=== PATIENT | male | born 1955 | race Caucasian/White ===

== ENCOUNTER 2025-05-03 07:47 | Inpatient (IN) | payer MEDICARE, MEDICAID ==
[~2025-05-03] VITALS: Ht 165.1 cm; Wt 100.7 kg
[~2025-05-03 07:47] MED LIST: HYDR-4001 MT
[2025-05-03 07:49] VITALS: O2SAT 99
[2025-05-03] MEDS: HYDROCODONE/ACETAMINOPHEN 5/325MG TABLET PO ONE (08:40)
[2025-05-03 08:43] LABS: HEMATOCRIT. 32.1 % (42.0-52.0); HEMOGLOBIN. 10.6 g/dL (14.0-18.0); MEAN PLATELET VOLUME 7.5 fl (7.4-10.4); PLATELET 343 x1000/uL (130-400); RED BLOOD CELL COUNT 3.20 mill/uL (4.7-6.1); RED CELL DISTRIBUTION WIDTH 14.6 % (11.6-14.6)
[2025-05-03] MEDS: FUROSEMIDE 40MG/4ML VIAL IVP ONE (08:44)
[2025-05-03 08:51] LABS: INR 0.9
[2025-05-03 08:56] LABS: CREATININE 0.7 mg/dL (0.6-1.3)
[2025-05-03 08:57] LABS: UREA NITROGEN BLOOD 17 mg/dL (9-23)
[2025-05-03 08:58] LABS: ASPARTATE AMINOTRANSFERASE 34 IU/L (<34); TROPONIN I HIGH SENSITIVITY 4 ng/L (3.0-53)
[2025-05-03 08:59] LABS: BILIRUBIN DIRECT 0.1 mg/dL (<=3.0); BILIRUBIN TOTAL 0.4 mg/dL (0.1-1.0); PROTEIN TOTAL 5.7 g/dL (6.0-8.3)
[2025-05-03 10:21] LABS: BAND% 5.0 % (1.0-6.0); EOSINOPHILS % MANUAL 4.0 % (0.0-5.0); LYMPHOCYTES % MANUAL 19.0 % (20.0-50.0); MONOCYTES % MANUAL 9.0 % (2.0-8.0); NEUTROPHILS % MANUAL 63.0 % (45.0-75.0); PLATELET ESTIMATE NORMAL
[2025-05-03 16:00] VITALS: BP 104/66; RESP 18; TEMP 36.7; O2SAT 98
[2025-05-03 16:40] VITALS: BP 102/74; PULSE 76; RESP 18; TEMP 36.0844
[2025-05-03] MEDS ORDERED: ONDANSETRON HCL 4MG/2ML INJ IV PRN (18:15)
[2025-05-03] MEDS ORDERED: IPRATROPIUM/ALBUTEROL 0.5-3(2.5)MG/3ML NEB HHN PRN (18:15)
[2025-05-03] MEDS ORDERED: CLONIDINE 0.1MG TABLET PO PRN (18:15)
[2025-05-03] MEDS ORDERED: INFLUENZA VACCINE 05/PF 0.5 ML SYRINGE IM ONE (18:15)
[2025-05-03] MEDS ORDERED: PNEUMOCOCCAL 20-VAL CONJ-DIP CRM 0.5ML IM ONE (18:15)
[2025-05-03 20:00] VITALS: BP 95/50; RESP 20; TEMP 36.5; O2SAT 97
[2025-05-03] MEDS: ACETAMINOPHEN 325MG TABLET PO PRN (22:38)
[2025-05-04] VITALS (7 sets, daily range): BP systolic 70–103; BP diastolic 42–61; RESP 18–20; TEMP 36.2–37.1; O2SAT 95–100
[2025-05-04 07:31] LABS: CREATININE 0.7 mg/dL (0.6-1.3); UREA NITROGEN BLOOD 13 mg/dL (9-23)
[2025-05-04 07:33] LABS: BASOPHILS % 0.3 % (0.0-2.0); EOSINOPHILS % 0.8 % (0.0-5.0); HEMATOCRIT. 33.5 % (42.0-52.0); HEMOGLOBIN. 11.4 g/dL (14.0-18.0); LYMPHOCYTES % 19.0 % (20.0-50.0); MEAN PLATELET VOLUME 7.7 fl (7.4-10.4); MONOCYTES % 11.8 % (2.0-8.0); NEUTROPHILS % 68.1 % (40.0-76.0); PLATELET 329 x1000/uL (130-400); RED BLOOD CELL COUNT 3.36 mill/uL (4.7-6.1); RED CELL DISTRIBUTION WIDTH 14.3 % (11.6-14.6)
[2025-05-04 08:33] LABS: HEPATITIS C AB NON REACTIVE (Neg) (Negative)
[2025-05-04 13:13] LABS: VITAMIN B12 SERUM 768 pg/mL (211-911)
[2025-05-04 13:14] LABS: FOLIC ACID (FOLATE) SERUM > 20.00 ng/mL (>5.38)
[2025-05-04] MEDS: ENOXAPARIN 30MG/0.3ML SYR SUBCUT SCH (13:26)
[2025-05-04 13:46] LABS: HEPATITIS A AB IGM NEGATIVE (Negative)
[2025-05-04 13:47] LABS: HEPATITIS B CORE AB IGM NEGATIVE (Negative); HEPATITIS C AB NON REACTIVE (Neg) (Negative)
[2025-05-04 21:34] LABS: CLARITY URINE CLEAR (CLEAR); COLOR URINE YELLOW (YELLOW); GLUCOSE URINE NEGATIVE (NEGATIVE); KETONES URINE NEGATIVE (NEGATIVE); LEUKOCYTE ESTERASE URINE NEGATIVE (NEGATIVE); NITRITE URINE NEGATIVE (NEGATIVE); OCCULT BLOOD URINE NEGATIVE (NEGATIVE); PH URINE 7.0 (4.5-8.0); PROTEIN URINE NEGATIVE (NEGATIVE); SPECIFIC GRAVITY URINE 1.023 (1.005-1.030); UROBILINOGEN URINE 1.0 E.U./dL (0.2-1.0)
[2025-05-05] VITALS: BP 100/62; RESP 18; TEMP 36.7; O2SAT 96
[2025-05-05 04:00] VITALS: BP 126/56; RESP 19; TEMP 36.7; O2SAT 98
[2025-05-05 08:00] VITALS: BP 139/103; PULSE 111; RESP 16; TEMP 36.3; O2SAT 96
[2025-05-05] MEDS ORDERED: NALOXONE HCL 0.4MG/ML VIAL IV PRN (13:00)
[2025-05-05] MEDS ORDERED: IOHEXOL-300 100 ML BOTTLE ONE (14:11)
[2025-05-05] MEDS: HYDROCODONE/ACETAMINOPHEN 5/325MG TABLET PO PRN (15:16)
[2025-05-05 16:00] VITALS: BP 88/50; PULSE 101; RESP 16; TEMP 36.3; O2SAT 97
[2025-05-05 20:00] VITALS: BP 96/56; PULSE 97; RESP 21; TEMP 36.5; O2SAT 98
[2025-05-06] VITALS: BP 92/58; PULSE 91; RESP 19; TEMP 36.3; O2SAT 99
[2025-05-06 04:00] VITALS: BP 102/62; PULSE 96; RESP 18; TEMP 36.1; O2SAT 97
[2025-05-06 08:00] VITALS: BP 94/58; PULSE 99; RESP 18; TEMP 35.8; O2SAT 97
[2025-05-06 12:00] VITALS: BP 96/60; PULSE 90; RESP 17; TEMP 37.2; O2SAT 97
[2025-05-06] MEDS: CEFTRIAXONE 1GM/50ML 50 ML IV SCH (15:57)
[2025-05-06 16:00] VITALS: BP 105/60; PULSE 89; RESP 17; TEMP 36.4; O2SAT 96
[2025-05-06] MEDS: PREDNISONE 20MG TABLET PO SCH (16:02)
[2025-05-06 20:00] VITALS: BP 117/58; PULSE 89; RESP 18; TEMP 36.4; O2SAT 98
[2025-05-07] VITALS: BP 121/60; PULSE 90; RESP 18; TEMP 36.5; O2SAT 98
[2025-05-07 08:00] VITALS: BP 119/88; PULSE 92; RESP 19; TEMP 36.9; O2SAT 97
[2025-05-07 08:19] LABS: BASOPHILS % 0.3 % (0.0-2.0); EOSINOPHILS % 0.6 % (0.0-5.0); HEMATOCRIT. 31.1 % (42.0-52.0); HEMOGLOBIN. 10.9 g/dL (14.0-18.0); LYMPHOCYTES % 13.3 % (20.0-50.0); MEAN PLATELET VOLUME 7.3 fl (7.4-10.4); MONOCYTES % 10.0 % (2.0-8.0); NEUTROPHILS % 75.8 % (40.0-76.0); PLATELET 353 x1000/uL (130-400); RED BLOOD CELL COUNT 3.18 mill/uL (4.7-6.1); RED CELL DISTRIBUTION WIDTH 14.1 % (11.6-14.6)
[2025-05-07 08:38] LABS: CREATININE 0.6 mg/dL (0.6-1.3); UREA NITROGEN BLOOD 9 mg/dL (9-23)
[2025-05-07 12:00] VITALS: BP 102/53; PULSE 94; RESP 18; TEMP 36.7; O2SAT 98
[2025-05-07 16:00] VITALS: BP 100/61; PULSE 89; RESP 18; TEMP 36.7; O2SAT 97
[2025-05-07 20:00] VITALS: BP 115/52; PULSE 89; RESP 20; TEMP 36.9; O2SAT 96
[2025-05-08] VITALS: BP 108/63; PULSE 86; RESP 19; TEMP 36.6; O2SAT 98
[2025-05-08 04:00] VITALS: BP 111/60; PULSE 86; RESP 19; TEMP 37.3; O2SAT 96
[2025-05-08 06:19] LABS: BASOPHILS % 0.2 % (0.0-2.0); EOSINOPHILS % 1.7 % (0.0-5.0); HEMATOCRIT. 32.8 % (42.0-52.0); HEMOGLOBIN. 11.3 g/dL (14.0-18.0); LYMPHOCYTES % 22.5 % (20.0-50.0); MEAN PLATELET VOLUME 7.1 fl (7.4-10.4); MONOCYTES % 13.7 % (2.0-8.0); NEUTROPHILS % 61.9 % (40.0-76.0); PLATELET 362 x1000/uL (130-400); RED BLOOD CELL COUNT 3.32 mill/uL (4.7-6.1); RED CELL DISTRIBUTION WIDTH 14.1 % (11.6-14.6)
[2025-05-08 06:40] LABS: CREATININE 0.7 mg/dL (0.6-1.3)
[2025-05-08 06:41] LABS: UREA NITROGEN BLOOD 9 mg/dL (9-23)
[2025-05-08 08:00] VITALS: BP 113/77; PULSE 96; RESP 17; TEMP 37.5; O2SAT 99
[2025-05-08] MEDS: THROAT LOZENGES-BENZOCAINE/MENTH/CETYLPYRD CL LOZENGES MM PRN (09:35)
[2025-05-08 12:00] VITALS: BP 124/77; PULSE 80; RESP 17; TEMP 36.8; O2SAT 97
[2025-05-08 16:00] VITALS: BP 126/86; PULSE 89; RESP 17; TEMP 37.1; O2SAT 98
[2025-05-08 20:00] VITALS: BP 121/79; PULSE 61; RESP 16; TEMP 36.1; O2SAT 100
[2025-05-09 04:00] VITALS: BP 139/78; PULSE 72; RESP 19; TEMP 36.5; O2SAT 98
[2025-05-09 08:00] VITALS: BP 114/69; PULSE 82; RESP 19; TEMP 35.8; O2SAT 98
[2025-05-09] MEDS ORDERED: ASPI-1497 MT (08:09)
[2025-05-09] MEDS ORDERED: ATOR10TA69 MT (08:09)
[2025-05-09] MEDS ORDERED: P20 MT (08:09)
[2025-05-09] MEDS ORDERED: AMOX1TAB16 MT (08:09)
[2025-05-09 08:22] LABS: CREATININE 0.5 mg/dL (0.6-1.3); UREA NITROGEN BLOOD 6 mg/dL (9-23)
[2025-05-09 12:00] VITALS: BP 135/44; PULSE 90; RESP 18; TEMP 36.2; O2SAT 95
[2025-05-09 16:00] VITALS: BP 147/87; PULSE 88; RESP 18; TEMP 36.5; O2SAT 98
[2025-05-09 20:00] VITALS: BP 122/71; PULSE 79; RESP 18; TEMP 36.3; O2SAT 98
[2025-05-10] VITALS: BP 145/79; PULSE 79; RESP 18; TEMP 36.4; O2SAT 98
[2025-05-10 04:00] VITALS: BP 143/79; PULSE 77; RESP 18; TEMP 36.4; O2SAT 96
[2025-05-10 08:00] VITALS: BP 123/77; PULSE 59; RESP 18; TEMP 36.4; O2SAT 95
[2025-05-10 12:00] VITALS: BP 144/70; PULSE 93; RESP 18; TEMP 36.5; O2SAT 98
[2025-05-10 16:00] VITALS: BP 116/87; PULSE 104; RESP 18; TEMP 36.5; O2SAT 98
[2025-05-10 20:00] VITALS: BP 113/85; PULSE 94; RESP 18; TEMP 36.4; O2SAT 98
[2025-05-11 04:00] VITALS: BP 132/64; PULSE 83; RESP 20; TEMP 35.9; O2SAT 96
[2025-05-11 08:00] VITALS: BP 139/79; PULSE 78; RESP 19; TEMP 36.3; O2SAT 97
[2025-05-11 12:00] VITALS: BP 147/93; PULSE 94; RESP 18; TEMP 36.3; O2SAT 100
[2025-05-11 16:00] VITALS: BP 135/88; PULSE 81; RESP 18; TEMP 36.2; O2SAT 98
[2025-05-11 20:00] VITALS: BP 135/78; PULSE 84; RESP 18; TEMP 36.3; O2SAT 96
[2025-05-12] VITALS: BP 123/78; PULSE 79; RESP 18; TEMP 36.1; O2SAT 97
[2025-05-12] MEDS: HYDROCODONE/ACETAMINOPHEN 5/325MG TABLET PO PRN (00:36)
[2025-05-12 04:00] VITALS: BP 136/78; PULSE 91; RESP 20; TEMP 36.4; O2SAT 100
[2025-05-12 08:00] VITALS: BP 128/77; PULSE 89; RESP 18; TEMP 35.8; O2SAT 98
[2025-05-12 12:00] VITALS: BP 127/79; PULSE 72; RESP 18; TEMP 36.7; O2SAT 95
[2025-05-12 20:00] VITALS: BP 127/76; PULSE 77; RESP 18; TEMP 36.3; O2SAT 97
[2025-05-13] VITALS: BP 139/84; PULSE 90; RESP 19; TEMP 36.3; O2SAT 95
[2025-05-13 04:00] VITALS: BP 99/70; PULSE 91; RESP 17; TEMP 32.8; O2SAT 92
[2025-05-13 08:00] VITALS: BP 114/71; PULSE 114; RESP 17; TEMP 36.5; O2SAT 97
[2025-05-13 12:00] VITALS: BP 124/74; PULSE 76; RESP 18; TEMP 36.7; O2SAT 98
[2025-05-13 16:00] VITALS: BP 115/76; PULSE 61; RESP 18; TEMP 37.1; O2SAT 97
[2025-05-13 20:00] VITALS: BP 126/82; PULSE 98; RESP 17; TEMP 36.3; O2SAT 97
[2025-05-13] MEDS: DOCUSATE SODIUM 100MG CAPSULE PO PRN (21:38)
[2025-05-14] VITALS: BP 119/56; PULSE 103; RESP 18; TEMP 36.3; O2SAT 96
[2025-05-14 04:00] VITALS: BP 127/73; PULSE 81; RESP 19; TEMP 36.1; O2SAT 96
[2025-05-14 08:00] VITALS: BP 113/61; PULSE 82; RESP 18; TEMP 36.5; O2SAT 98
[2025-05-14 12:00] VITALS: BP 110/77; PULSE 98; RESP 18; TEMP 36.5; O2SAT 97
[2025-05-14 16:00] VITALS: BP 130/79; PULSE 92; RESP 18; TEMP 36.7; O2SAT 100
[2025-05-14 20:00] VITALS: BP 134/77; PULSE 104; RESP 18; TEMP 36.3; O2SAT 97
[2025-05-15] VITALS: BP 105/74; PULSE 91; RESP 18; TEMP 36.3; O2SAT 96; O2SAT 97
[2025-05-15 04:00] VITALS: PULSE 94; RESP 18; TEMP 36.3; O2SAT 96
[2025-05-15 08:00] VITALS: BP 141/85; PULSE 102; RESP 17; TEMP 37.4; O2SAT 99
[2025-05-15 12:00] VITALS: BP 113/85; PULSE 95; RESP 18; TEMP 36.6; O2SAT 97
[2025-05-15] MEDS ORDERED: ALPRAZOLAM 0.5 MG TABLET PO PRN (15:30)
[2025-05-15 16:00] VITALS: BP 134/77; PULSE 104; RESP 18; TEMP 36.3; O2SAT 97
[2025-05-15] MEDS ORDERED: NALOXONE HCL 0.4MG/ML VIAL IV PRN (16:00)
[2025-05-15 20:00] VITALS: BP 136/87; PULSE 96; RESP 18; TEMP 36.5; O2SAT 98
[2025-05-16] VITALS: BP 111/64; PULSE 77; RESP 19; TEMP 36.4; O2SAT 98
[2025-05-16 04:00] VITALS: BP 101/50; PULSE 82; RESP 18; TEMP 36.3; O2SAT 97
[2025-05-16 08:00] VITALS: BP 148/74; PULSE 94; RESP 18; TEMP 36.4; O2SAT 97
[2025-05-16 12:00] VITALS: BP 138/66; PULSE 87; RESP 18; TEMP 36.7; O2SAT 98
[2025-05-16] MEDS: POLYETHYLENE GLYCOL 3350 (17GM) 1 DOSE PACK PO ONE (12:00)
[2025-05-16 16:00] VITALS: BP 136/71; PULSE 76; RESP 18; TEMP 36.9; O2SAT 97
[2025-05-16] MEDS: LACTULOSE 20G/30ML UDC PO PRN (18:35)
[2025-05-16 20:00] VITALS: PULSE 98; RESP 18; TEMP 36.3; O2SAT 98
[2025-05-17] VITALS: BP 121/90; PULSE 99; RESP 18; TEMP 36.2; O2SAT 99
[2025-05-17 04:00] VITALS: BP 118/89; PULSE 98; RESP 18; TEMP 36.1; O2SAT 99
[2025-05-17 08:00] VITALS: BP 90/52; PULSE 89; RESP 17; TEMP 36.5; O2SAT 96
[2025-05-17] MEDS: POLYETHYLENE GLYCOL 3350 (17GM) 1 DOSE PACK PO SCH (09:37)
[2025-05-17] MEDS: ACETAMINOPHEN 325MG TABLET PO PRN (09:37)
[2025-05-17 12:00] VITALS: BP 115/70; PULSE 81; RESP 17; TEMP 36.5; O2SAT 95
[2025-05-17 16:00] VITALS: BP 132/83; PULSE 88; RESP 18; TEMP 36.5; O2SAT 98
== END 2025-05-17 18:45 | DRG 157 ==
LOC: ER 07:47 → 4WST 10:26 → EDBEDREQ 10:29 → EDBEDREQSVC 10:29 → EDBEDREQTM 10:29
PROVIDERS: ADMIT Internal Medicine; ATTEND Internal Medicine
DX: K12.2 Cellulitis and abscess of mouth (principal); L89.153 Pressure ulcer of sacral region, stage 3; E87.1 Hypo-osmolality and hyponatremia; K74.60 Unspecified cirrhosis of liver; S13.4XXA Sprain of ligaments of cervical spine, initial encounter; D53.9 Nutritional anemia, unspecified; D72.821 Monocytosis (symptomatic); I10 Essential (primary) hypertension; E66.01 Morbid (severe) obesity due to excess calories; J39.2 Other diseases of pharynx; M50.323 Other cervical disc degeneration at C6-C7 level; K76.0 Fatty (change of) liver, not elsewhere classified; R74.01 Elevation of levels of liver transaminase levels; R47.1 Dysarthria and anarthria; Z68.36 Body mass index [BMI] 36.0-36.9, adult; W18.39XA Other fall on same level, initial encounter; Y93.89 Activity, other specified; Y92.89 Other specified places as the place of occurrence of the external cause; Y99.8 Other external cause status
CPT/HCPCS: 36415; 70490; 71045; 71260; 76700; 80048; 80076; 81003; 82607; 82746; 83735; 83880; 84145; 84484; 85025; 86705; 86709; 87340; 92610; 93005; 93970; 97162; 97166; 99285; A4606; J0696; J1650; J1938; J7512; Q9967